=== PATIENT | female | born 1975 | race Caucasian/White ===

== ENCOUNTER 2024-11-08 10:34 | Outpatient (REF) | payer OTHER, SELFPAY ==
--- OUTSIDE RECORDS SUMMARY | 2024-11-08 12:45 | XMS_ITS ---
Author Name [facility] Organization Unknown Results Test Name/Text Value Interpretation Date Range Source ICD-10 CODES Normal 05/22/2024 [facility] AP GROSS DESCRIPTION Received in formalin. Dimensions 3 x 3 x 3 mm, and submitted in 1 cassette. Also received is a vial of tissue transport medium (Metricly) containing a biopsy specimen measuring 2 x 2 x 3 mm. Tissue was washed in phosphate buffered saline and then embedded in OCT for immunofluorescent studies. Tissue was frozen, cut at 5 microns, and stained with fluorescein-labeled antibody to human IgG, IgM, IgA, C3 and fibrinogen. Normal 05/22/2024 [facility] AP CLINICAL INFORMATION Erythematous edematous papules that remain in the same place for over 24 hours, with residual bruising/PIH; urticarial vasculitis vs urticaria vs hypersensitivity reaction vs autoimmune progesterone dermatitis Normal 05/22/2024 [facility]
[2024-11-08 17:33] LABS: MANUAL DIFF FLAG NO
[2024-11-08 17:41] LABS: Hematocrit 40.7 % (37.0-47.0); Hemoglobin 13.3 g/dl (12.0-16.0); Imm Gran Abs Auto 0.03 X10*3/uL (0.00-0.03); Imm Gran Pct Auto 0.3 % (0.0-0.4); Lymphocytes Absolute Auto 2.3 X10*3/uL (1.2-4.9); Mean Corpuscular HGB Conc 32.7 g/dl (31.0-35.0); Mean Corpuscular Hemoglobin 31.0 pg (27.0-33.0); Mean Corpuscular Volume 94.9 fL (80.0-98.0); NRBC Abs Auto 0.000 X10*3/uL (0.0-0.012); NRBC Pct Auto 0.0 /100WBC (0.0-0.2); Platelet Count 334 X10*3/uL (160-400); Red Blood Count 4.29 X10*6/uL (4.20-5.50); White Blood Count 9.1 X10*3/uL (4.8-10.8)
[2024-11-08 17:50] LABS: Alanine Aminotransferase 17 U/L (0-31); Aspartate Amino Transferase 19 U/L (5-31); Estimated Glomerular Filt Rate > 60
[2024-11-08 17:52] LABS: Appearance Urine Clear; Glucose Urine UA Negative (Negative); PH 6.5 (5.0-9.0); Specific Gravity - Urine <= 1.005 (1.005-1.025)
[2024-11-08 18:06] LABS: Total Protein Urine Random < 7 mg/dL (<12)
== END 2024-11-08 10:35 | disposition home or self-care (01) ==
LOC: HO.HKASLDS 10:34
PROVIDERS: PCP Nurse Practitioner Primary Care; Visit Provider Internal Medicine Rheumatology
DX: M18.0 Bilateral primary osteoarthritis of first carpometacarpal joints (principal); R76.0 Raised antibody titer; M65.4 Radial styloid tenosynovitis [de Quervain]; G56.03 Carpal tunnel syndrome, bilateral upper limbs; R76.8 Other specified abnormal immunological findings in serum; R29.898 Other symptoms and signs involving the musculoskeletal system; M79.641 Pain in right hand; M79.642 Pain in left hand; R21 Rash and other nonspecific skin eruption; R53.83 Other fatigue; R20.2 Paresthesia of skin; L65.9 Nonscarring hair loss, unspecified
CPT/HCPCS: 36415; 81001; 82565; 82570; 84156; 84450; 84460; 85025; 85652; 86140; 86160; 86225

== ENCOUNTER 2024-11-08 10:34 | Outpatient (AMB) | payer OTHER, SELFPAY ==
--- NOTE | 2024-11-08 10:48 | A.OFFVIS_ITS ---
Vital Signs 11/08/24 10:54 Height 5 ft 5 in Weight 181 lb BMI 30.1 BP 122/70 Blood Pressure Location Lt brachial Position Sitting Pulse 63 Pulse Source Pulse Oximeter Pulse Oximetry (%) 98 Oxygen Delivery Method Room Air Intake Visit Reasons: rash Intake Note: Patient presents for hives, and positive blood work. Allergies amoxicillin (From Augmentin) Allergy (Mild, Verified 11/08/24 10:57) Hives clavulanic acid (From Augmentin) Allergy (Mild, Verified 11/08/24 10:57) Hives HPI HPI rash: Details: New patient evaluation for positive MONICO. She has had high titre MONICO for the last 20 years. She saw rheumatology [facility] who did not diagnose with CTD. She was offered treatment with hydroxychloroquine but due to patient not having a rheumatological diagnosis she did not start hydroxychloroquine. She has had recurrent hives. She was put on Dupixent 4 months ago with 90% resolution. She bruises easily. R 2nd MCP pain 2 month ago with swelling. Using thumbs in repetitive motion like spray bottle and watering garden leads to reduced function the next day.. Rubbing 1st extensor tendons hurt with tingling when she rubs the area. Hands are numb at night. Stiffness in her hands is hours. Oral ulcers in the past. She is experiencing difficulty swallowing + hair loss Chronic dry eyes and dry mouth. She saw eye doctor a month ago who told her to take artificial tears. No miscarriages or DVT or PE. No complication with 1 childbirth. Headaches often No urianary symptoms Legs in weakness in legs and arms. 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 Fatigue for years. On thyroid replacement therapy. Hx hyperthyroidism s/p radioiodine therapy. TSH levels fluctuate and her thyroid medication has to be adjusted. 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 Dropping things. [facility] Medical History (Updated 11/08/24 @ 12:36 by Blayne Flores MD) Hallux valgus of right foot History of slipped capital femoral epiphysis Surgical History (Updated 12/30/23 @ 11:50 by ANGELO Kuhn) H/O tubal ligation History of cholecystectomy Physical Exam Vital Signs: Last Vital Signs Pulse 63 11/08/24 10:54 BP 122/70 11/08/24 10:54 Pulse Ox 98 11/08/24 10:54 Oxygen Delivery Method Room Air 11/08/24 10:54 BMI result Body Mass Index 30.1 Const Other: General: Comfortable CVS: RRR Respiratory: clear to auscultation bilaterally. Good respiratory effort Skin: No lesions seen MSK: She has tenderness to palpation right 2nd and 3rd MCP, right 2nd PIP, left 2nd MCP, 4th PIP, bilateral CMCs with slight squaring. She has ulnar deviation of right 2nd MCP. She does not have any synovitis. Tender to palpate bilateral 1st extensor compartment of wrists. Positive Vik left side. Positive Phalen's test bilateral. Negative Tinel's test. Good hand strength. Normal range of motion of upper extremities. Normal range of motion of lower extremities. She has valgus valgus deformity bilateral. No MTP tenderness Assessment & Plan Assessment & Plan (1) Positive MONICO (antinuclear antibody): Comment: High titer positive 1: 640 October 2023. She reports a high titer MONICO history for 20 years. She is experiencing fatigue, generalized weakness, hair loss, sicca symptoms, right 2 month history of right 2nd MCP pain, which I am working up for connective tissue disease such as Sjogren's syndrome, inflammatory arthritis and completing workup for SLE. Answered patient's questions to her satisfaction. Workup that patient has brought in with her from 11/22/2023 and 12/21/2022 has revealed no cytopenias, normal inflammatory markers, kidney function, liver function, negative Sm, HIGH HEEL BUILDER, centromere ab, scl-70, RF, CCP, anticardiolipin antibody, beta 2 glycoprotein antibody, double-stranded DNA and complements. Code(s): R76.8 - Other specified abnormal immunological findings in serum Category: Medical Plan: Labs ordered Bilateral hand x-rays ordered I have asked her to contact her protective officer for eye exam to evaluate for keratoconjunctivitis sicca associated with Sjogren syndrome and Francis's test. If testing is positive, then I will pursue minor salivary gland biopsy Return to clinic in 3 months (2) Bilateral hand pain: Comment: Localized pain to right 2nd MCP 2 month history. She has a few joints that are tender on exam in her hands involving MCPs and PIPs. She has slight ulnar deviation of right hand. I will further workup for early inflammatory arthritis with x-rays and labs. She has negative anti CCP antibody, rheumatoid factor November 22 2023. Code(s): M79.641 - Pain in right hand; M79.642 - Pain in left hand Category: Medical Plan: Inflammatory markers ordered X-ray bilateral hands ordered Return to clinic in 3 months (3) Paresthesia of hand, bilateral: Comment: I am concerned for carpal tunnel syndrome and ulnar neuropathy contributing to nocturnal paraesthesia Code(s): R20.2 - Paresthesia of skin Category: Medical Plan: EMG upper extremities ordered Return to clinic in 3 months (4) De Quervain's tenosynovitis, bilateral: Comment: She is symptomatic bilaterally with clinical diagnosis on left side. Code(s): M65.4 - Radial styloid tenosynovitis [de Quervain] Category: Medical Plan: Wrist braces prescribed OT prescribed Return to clinic in 3 months (5) Osteoarthritis of carpometacarpal (CMC) joint of both thumbs: Comment: Clinical Diagnosis. Repetitive motions are exacerbating thumb pain. Code(s): M18.0 - Bilateral primary osteoarthritis of first carpometacarpal joints Category: Medical Plan: OT prescribed with custom CMC splints X-ray bilateral hands ordered Return to clinic in 3 months Orders: Orders Alanine Aminotransferase Today R76.0 - Raised antibody titer, R76.8 - Other specified abnormal immunological findings in serum C Reactive Protein Today R76.0 - Raised antibody titer, R76.8 - Other specified abnormal immunological findings in serum Complement C4 Today R76.0 - Raised antibody titer, R76.8 - Other specified abnormal immunological findings in serum UA w Microscopic Today R76.0 - Raised antibody titer, R76.8 - Other specified abnormal immunological findings in serum Protein Creatinine Ratio, Ur Today R76.0 - Raised antibody titer, R76.8 - Other specified abnormal immunological findings in serum Anti DNA DS Antibody Today R76.0 - Raised antibody titer, R76.8 - Other specified abnormal immunological findings in serum Complete Blood Count Auto Diff Today R76.8 - Other specified abnormal immunological findings in serum XR Hand Bilat min 3v Today M79.641 - Pain in right hand, M79.642 - Pain in left hand NE electromyogram (EMG) Today R20.2 - Paresthesia of skin NE nerve conduction velocity Today R20.2 - Paresthesia of skin Aspartate Amino Transferase Today R76.0 - Raised antibody titer, R76.8 - Other specified abnormal immunological findings in serum Creatinine Today R76.0 - Raised antibody titer, R76.8 - Other specified abnormal immunological findings in serum Erythrocyte Sedimentation Rate Today R76.0 - Raised antibody titer, R76.8 - Other specified abnormal immunological findings in serum Complement C3 Today R76.0 - Raised antibody titer, R76.8 - Other specified abnormal immunological findings in serum OT Evaluation and Treatment Today G56.03 - Carpal tunnel syndrome, bilateral upper limbs, M18.0 - Bilateral primary osteoarthritis of first carpometacarpal joints, M65.4 - Radial styloid tenosynovitis [de Quervain], M79.641 - Pain in right hand, M79.642 - Pain in left hand Medications: New arm brace (Wrist Brace) Wear during the day with repetitive activity Diagnosis: Bilateral de Quervain tenosynovitis Bilateral thumb spica splint short 2 ea 0RF Coding Level of Care Code Est Pt Level 5 (36496) Diagnoses Positive MONICO (antinuclear antibody) R76.8 Bilateral hand pain M79.641; M79.642 Paresthesia of hand, bilateral R20.2 De Quervain's tenosynovitis, bilateral M65.4 Osteoarthritis of carpometacarpal (CMC) joint of both thumbs M18.0 Time Spent (min) 60
[2024-11-08 10:54] VITALS: BP 122/70; PULSE 63; O2SAT 98; BMI 30.1
--- OUTSIDE RECORDS SUMMARY | 2024-11-08 11:07 | XMS_ITS | Encounter Summary ---
Author Organization [facility] Address [address] [place] [address] Care Team Providers Care Medical Delivery Driver Name Role Phone Nicole Castrejon Primary Care Provider [phone] Encounter Details Date Type Department Care Team (Late st Contact Info) Description 10/12/2024 Telephone [facility] [address] [place] [address] Gas Desulfurizer: Georgina Dixon MD [address] [place] [address] Social History Tobacco Use Types Packs/Day Years Used Date Smoking Tobacco: Never Passive Smoke Exposure: Never Smokeless Tobacco: Never Alcohol Use Standard Drinks/Week Comments Yes 0 (1 standard drink = 0.6 oz pur e alcohol) rare Comments Unknown Sex and Gender Information Value Date Recorded Sex Assigned at Female 01/04/2023 1:56 PM EDT Legal Sex Female 4:43 PM EDT Gender Identity Female 01/04/2023 1:56 PM EDT Sexual Orientation Straight 01/04/2023 1: 56 PM EDT documented as of this encounter Miscellaneous Notes * Telephone Encounter - Poppy Kennedy - 10/12/2024 10:59 AM EDT Who is calling: Maame Candelaria Call back Number: [phone] -Medication Questions/Refills: Pt states pharmacy needs clarification on Fexofenadine, most likely because it is a high dose (may take up to 4 as needed) pt has been out of the medication Preferred Pharmacy: [facility] [place] [facility] documented in this encounter Plan of Treatment Not on file documented as of this encounter Visit Diagnoses Not on filedocumented in this encounter Care Teams Medical Delivery Driver Relationship Specialty Start Date End Date Nicole Castrejon [address] [place] [address] PCP - General 01/03/23 documented as of this encounter
--- OUTSIDE RECORDS SUMMARY | 2024-11-08 11:07 | XMS_ITS | Patient Health Record ---
Author Organization [facility] Address [address] [address] Care Team Providers Care Putty Worker Name Role Phone Kasia Castellon Unavailable [phone] Reason For Referral No Information Plan Of Treatment No Information Insurance Providers Payer Name Payer Address Payer Phone Subscriber Number Group Number Insured Name Patient Relationship to Insured Coverage Start Date Coverage End Date [employer] [address] [place], [place] [id number] CARLITOS OSULLIVAN Self - patient is the insured
== END 2024-11-08 12:01 | disposition home or self-care (01) ==
LOC: HO.RHES 10:34
PROVIDERS: PCP Nurse Practitioner Primary Care; Visit Provider Internal Medicine Rheumatology
DX: R76.8 Other specified abnormal immunological findings in serum (principal); M79.641 Pain in right hand; M79.642 Pain in left hand; R20.2 Paresthesia of skin; M65.4 Radial styloid tenosynovitis [de Quervain]; M18.0 Bilateral primary osteoarthritis of first carpometacarpal joints
CPT/HCPCS: 99205

== ENCOUNTER 2024-11-14 12:38 | Outpatient (REF) | payer OTHER, SELFPAY ==
--- NOTE | ~2024-11-14 | XR_ITS ---
Exam: X-ray, .XR HAND 3 VIEWS BILATERAL TECHNIQUE: Three views upper extremity, bilateral hands INDICATION: M79.641 - Pain in right hand COMPARISON: None available. FINDINGS: RIGHT HAND: Joint spaces are preserved. There are no osteophytes. There are no erosions. There are no soft tissue calcifications. LEFT HAND: Joint spaces are preserved. There are no osteophytes. There are no erosions. There are no soft tissue calcifications. XR/XR Hand Bilat min 3v IMPRESSION: Right hand: Unremarkable right hand Left hand: Unremarkable left hand Electronically signed by: Cristian Goldsmith MD 11/14/2024 01:16 PM EDT
--- OUTSIDE RECORDS SUMMARY | 2024-11-14 13:04 | XMS_ITS | Encounter Summary ---
Author Organization [facility] Address [address] [place] [address] Care Team Providers Care President/Gm Production & Live Experiences Name Role Phone Nicole Castrejon Primary Care Provider Encounter Details Date Type Department Care Team (Late st Contact Info) Description 10/12/2024 Telephone [facility] [address] [place] [address] Finish Production Manager: Georgina Dixon MD [address] [place] [address] Social History Tobacco Use Types Packs/Day Years [...] is calling: Maame Candelaria Call back Number: [phone] -Medication Questions/Refills: Pt states pharmacy needs clarification on Fexofenadine, most likely because it is a high dose (may take up to 4 as needed) pt has been out of the medication Preferred Pharmacy: [facility] in [place] [facility] documented in this encounter Plan of Treatment Not on file documented as of this encounter Visit Diagnoses Not on filedocumented in this encounter Care Teams President/Gm Production & Live Experiences Relationship Specialty Start Date End Date Nicole Castrejon [address] [place] [address] PCP - General 01/03/23 documented as of this encounter
--- OUTSIDE RECORDS SUMMARY | 2024-11-14 13:05 | XMS_ITS | Patient Health Record ---
Author Organization [facility] Address [address] [address] Care Team Providers Care Pipe Racker Name Role Phone Kasia Castellon Unavailable [phone] Reason For Referral No Information Plan Of Treatment No Information Insurance Providers Payer Name Payer Address Payer Phone Subscriber Number Group Number Insured Name Patient Relationship to Insured Coverage Start Date Coverage End Date C[employer] [address] [place], [place] [id number] CARLITOS OSULLIVAN Self - patient is the insured
== END 2024-11-14 12:39 | disposition home or self-care (01) ==
LOC: HO.XRAY 12:38
PROVIDERS: PCP Internal Medicine; Visit Provider Internal Medicine Rheumatology
DX: M79.641 Pain in right hand (principal); M79.642 Pain in left hand
CPT/HCPCS: 73130

== ENCOUNTER → 2024-11-14 12:43 | Outpatient (BNV) | payer OTHER, SELFPAY | PROVIDERS: PCP Internal Medicine; Visit Provider Radiology Diagnostic Radiology | DX: M79.641 Pain in right hand (principal) | CPT/HCPCS: 73130 ==

== ENCOUNTER 2025-01-17 12:38 | Outpatient (REF) | payer OTHER, SELFPAY ==
--- NOTE | 2025-01-17 12:43 | EMG_ITS ---
Chief complaint: Right worse than left hand numbness/tingling, particularly for the 5th digits. Chronic neck pain. Reason for referral: Evaluate for Carpal Tunnel Syndrome or ulnar neuropathy Referred by: Dr. Flores Procedure done: Upper extremity NCS/EMG Precautions and/or limitations: None The limb temperature was monitored continuously and remained between 32-36 degrees C during the performance of the NCS. Nerve Conduction Studies Anti Sensory Summary Table ?Stim Site NR Onset (ms) Norm Onset (ms) Peak (ms) Norm Peak (ms) O-P Amp (?V) Norm O-P Amp Site1 Site2 Delta-0 (ms) Dist (cm) Zan (m/s) Norm Zan (m/s) Left Median Anti Sensory (2nd Digit) Wrist ? 2.7 3.4 <3.6 22.9 >10 Wrist 2nd Digit 2.7 14.0 52 Right Median Anti Sensory (2nd Digit) Wrist ? 2.7 3.9 <3.6 25.9 >10 Wrist 2nd Digit 2.7 14.0 52 Right Radial Anti Sensory (Thumb) Forearm ? 1.7 2.2 <3.1 38.1 Forearm Thumb 1.7 0.0 Left Ulnar Anti Sensory (5th Digit) Wrist ? 2.3 3.2 <3.7 46.4 >15.0 Wrist 5th Digit 2.3 14.0 61 Right Ulnar Anti Sensory (5th Digit) Wrist ? 2.4 3.1 <3.7 44.0 >15.0 Wrist 5th Digit 2.4 14.0 58 Motor Summary Table ?Stim Site NR Onset (ms) Norm Onset (ms) O-P Amp (mV) Norm O-P Amp iAmp (mV) Amp (1st) (%) Site1 Site2 Delta-0 (ms) Dist (cm) Zan (m/s) Norm Zan (m/s) Left Median Motor (Abd Poll Brev) Wrist ? 3.8 <3.9 8.7 >4.5 10.9 100.0 Elbow Wrist 3.6 18.5 51 >45 Elbow ? 7.4 7.5 9.7 86.2 Right Median Motor (Abd Poll Brev) Wrist ? 4.2 <3.9 12.3 >4.5 14.5 100.0 Elbow Wrist 3.2 18.5 58 >45 Elbow ? 7.4 12.5 14.6 101.6 Left Ulnar Motor (Abd Dig Minimi) Wrist ? 2.7 <3.0 9.0 >5 10.4 100.0 B Elbow Wrist 2.8 17.0 61 >45 B Elbow ? 5.5 9.0 10.4 100.0 A Elbow B Elbow 1.4 10.0 71 >45 A Elbow ? 6.9 9.0 10.3 100.0 Right Ulnar Motor (Abd Dig Minimi) Wrist ? 2.7 <3.0 9.3 >5 11.3 100.0 B Elbow Wrist 3.3 18.0 55 >45 B Elbow ? 6.0 8.9 10.7 95.7 A Elbow B Elbow 1.4 10.0 71 >45 A Elbow ? 7.4 7.8 9.3 83.9 Comparison Summary Table ?Stim Site NR Peak (ms) Norm Peak (ms) P-T Amp (?V) Site1 Site2 Delta-P (ms) Norm Delta (ms) Left Median/Radial Dig I Comparison (Digit 1 - 10cm) Median ? 3.0 <2.9 101.2 Median Radial 0.7 Radial ? 2.3 <2.8 40.3 EMG ?Side Muscle Nerve Root Ins Act Fibs Psw Amp Dur Poly Recrt Int Pat Comment Right 1stDorInt Ulnar C8-T1 Nml Nml Nml Nml Nml 0 Nml Complete Right FlexCarRad Median C6-7 Nml Nml Nml Nml Nml 0 Nml Complete Right Biceps Musculocut C5-6 Nml Nml Nml Nml Nml 0 Nml Complete Right Triceps Radial C6-7-8 Nml Nml Nml Nml Nml 0 Nml Complete Right Deltoid Axillary C5-6 Nml Nml Nml Nml Nml 0 Nml Complete Left 1stDorInt Ulnar C8-T1 Nml Nml Nml Nml Nml 0 Nml Complete Left FlexCarRad Median C6-7 Nml Nml Nml Nml Nml 0 Nml Complete Left Biceps Musculocut C5-6 Nml Nml Nml Nml Nml 0 Nml Complete Left Triceps Radial C6-7-8 Nml Nml Nml Nml Nml 0 Nml Complete Left Deltoid Axillary C5-6 Nml Nml Nml Nml Nml 0 Nml Complete FINDINGS: Right median motor nerve showed prolonged distal latency, normal amplitude and normal conduction velocity. Right median sensory nerve showed prolonged peak latency. Increased interlatency difference between left median and radial sensory nerves. All other nerves tested were within normal. Concentric needle EMG was performed in selected muscles of the bilateral upper extremities. Study did not reveal signs of electric abnormalities as shown in the table above. IMPRESSION: 1. This is an abnormal study. 2. There is electrodiagnostic evidence for right moderate-severe and left mild median neuropathy at the wrist, consistent with carpal tunnel syndrome. 3. There is no electrodiagnostic evidence for ulnar neuropathy, brachial plexopathy, or cervical radiculopathy. Thank you for your kind referral. Eugenie Brown MD, JAROCHO Board Certified, [place] [employer] and [employer] (ABPMR) Board Certified, [place] Board [employer] Electrodiagnostic [employer] (ABEM) CODIN [phone] x 2 MTDD
--- OUTSIDE RECORDS SUMMARY | 2025-01-17 17:26 | XMS_ITS | Clinical Summary ---
Author Organization [facility] Address [address] [place] [address] Care Team Providers Care Director Of Flight Operations Name Role Phone Nicole Castrejon Primary Care Provider [phone] Allergies Active Allergy Reactions Criticality Noted Date Comments Amoxicillin-Pot Clavulanate Hives,Itching 01/10/2023 Augmentin Dmdm Hydantoin Contact Dermatitis,Edema,Hi ves,Itching,Rash 01/10/2023 Isothiazolinones Edema,Hives,Itching ,Rash 01/10/2023 Latex Contact Dermatitis,Hives,It jesenia 01/10/2023 Other Itching,Dermatitis, Rash,Contact Dermatitis,Edema 07/24/2022 Chloroprene gloves Medications albuterol (PROAIR HFA,VENTOLIN HFA) 90 mcg inhaler Inhale 2 puffs by mouth as needed for wheezing or shortness of breath. Active cetirizine-pseu doephedrine (ZyrTEC-D) 5-120 mg per 12 hr tablet Take 1 tablet by mouth every night. Active levothyroxine (SYNTHROID, LEVOTHROID) 175 mcg tablet Take 175 mcg by mouth daily. Active LORazepam (ATIVAN) 0.5 mg tablet Take 1-2 tablets by mouth daily as needed for anxiety. 3 Active Singulair 10 mg tablet Take 10 mg by mouth nightly. 2 Active phenytoin extended (DILANTIN) 300 mg ER capsule Take 300 mg by mouth 2 (two) times a day. Active fexofenadine (BONNY) 180 mg tablet Take 1 tablet (180 mg total) by mouth once a day. 60 tablet 3 5 Active Active Problems Problem Noted Date Diagnosed Date Polyarthralgia 01/17/2024 Chronic right shoulder pain 01/17/2024 Assessment & Plan (01/17/2024 5:08 PM EDT): -Likely due to rotator cuff pathology. -Xrays today -Referred to PT. Eosinophilic esophagitis 01/10/2023 Positive MONICO (antinuclear antibody) 01/10/2023 Assessment & Plan (01/17/2024 5:09 PM EDT): -High titer MONICO but with negative additional serologies for SLE. Most recently had repeat testing of her serologies through PCP and now Scl 70 is negative but anti-chromatin Ab is positive. Normal complement and inflammatory markers. -Reports recurring hives, arthralgias without arthritis, and fatigue. -Serologies are not convincing for systemic lupus. Patient is frustrated with lack of diagnosis. -Areas of joint pain would be more suggestive of mechanical/degenerative causes of pain (such as neck pain, lower back pain) and there is no synovitis on exam or relevant persistent rashes. -For history of hives, I suggested a second opinion by Dermatology at our lupus clinic/Dr. Alves -We discussed trying hydroxychloroquine to see if her arthralgias improve. Would use for 3-6 months as a trial. Patient is aware it would not help her neck or lower back pain. Risks of GI upset and retinal toxicity/need for regular Ophtho screenings were discussed. Reading material provided. Patient will consider, not ready to commit yet. Encounters Date Type Department Care Team Description 10/23/2024 Telephone [facility] [address] [place] [address] Kiln Furniture Saw Tender: Georgina Dixon MD Non-Covered/Excluded - PAC Retail Pharm Denial from Last 3 Months Social History Tobacco Use Types Packs/Day Years Used Date Smoking Tobacco: Never Passive Smoke Exposure: Never Smokeless Tobacco: Never Tobacco Cessation:Counseling Given: Not Answered Alcohol Use Standard Drinks/Week Comments Yes 0 (1 standard drink = 0.6 oz pur e alcohol) rare Comments Unknown Sex and Gender Information Value Date Recorded Sex Assigned at Female 01/04/2023 1:56 PM EDT Legal Sex Female 4:43 PM EDT Gender Identity Female 01/04/2023 1:56 PM EDT Sexual Orientation Straight 01/04/2023 1: 56 PM EDT Last Filed Vital Signs Vital Sign Reading Time Taken Comments Blood Pressure 105/67 01/24/2024 3:38 PM EDT Pulse 70 01/24/2024 3:38 PM EDT Temperature 37.2 C (99 F) 01/24/2024 3:38 PM EDT Respiratory Rate - - Oxygen Saturation - - Inhaled Oxygen Concentration - - Weight 85.7 kg (189 lb) 01/24/2024 3:38 PM EDT Height 165.1 cm (5' 5 ) 01/24/2024 3:38 PM EDT Body Mass Index 31.45 01/24/2024 3:38 PM EDT Plan of Treatment Health Maintenance Due Date Last Done Comments Cervical Cancer Screening 1977 Cologuard 1977 Colon Cancer Screening 1977 Colonoscopy 1977 FOBT / Fit Test 1977 HIV Screening 1977 HPV and Pap Smear 1977 Hepatitis C Screening 1977 Pap Smear 1977 Sigmoidoscopy 1977 Hepatitis B Vaccines (1 of 3 - 19+ 3-dose series) 1996 Pneumococcal Vaccine: Pediat lele (0-5 Years) and At-Risk Patients (6-50 Years) (1 of 2 - PCV) 1996 Mammogram 2017 Alcohol/Substance Use Screening 04/25/2024 Depression Screening and Follow-Up 04/25/2024 Social Drivers of Health Jing ual Screening 04/25/2024 COVID-19 Vaccine ( - 2024- season) 2024 05/13/2021, 06/07/2020, 05/17/2020 Influenza Vaccine (#1) 2024 Diabetes Screening 01/16/2027 01/17/2024 DTaP,Tdap,and Td Vaccines (2 - Td or Tdap) 10/09/2030 10/09/2020 RSV Vaccine (60+ years old a nd patients) (1 - 1-dose 75+ series) 2052 Procedures * Due to [place] [employer] law, this organization might not be sharing negative HIV tests. Procedure Name Priority Date/Time Associated Diagnosis Comments COMPREHENSIVE METABOLIC PANEL Routine 01/17/2024 3:16 PM EDT Polyarthralgia Positive MONICO (antinuclear antibody) from Last 3 Months or Most Recently Relevant to Health Maintenance Results * Due to [facility] law, this organization might not be sharing negative HIV tests. * (ABNORMAL) Comprehensive Metabolic Panel (01/17/2024 3:16 PM EDT) NA 141 135 - 145 mmol/L 01/17/2024 4:28 PM EDT [facility] K 3.7 3.5 - 5.3 mmol/L 01/17/2024 4:28 PM EDT [facility] Cl 105 98 - 107 mmol/L 01/17/2024 4:28 PM EDT [facility] CO2 28 22 - 32 mmol/L 01/17/2024 4:28 PM EDT [facility] Anion Gap 8 5 - 15 01/17/2024 4:28 PM EDT [facility] Glucose 100(H) 65 - 99 mg/dL 01/17/2024 4:28 PM EDT [facility] Creatinine 0.78 0.50 - 1.20 mg/dL 01/17/2024 4:28 PM EDT [facility] Calcium 8.9 8.6 - 10.5 mg/dL 01/17/2024 4:28 PM EDT [facility] Total Protein 7.2 6.0 - 8.0 g/dL 01/17/2024 4:28 PM EDT [facility] Albumin 4.2 3.5 - 5.2 g/dL 01/17/2024 4:28 PM EDT [facility] Bilirubin, Total <0.2(L) 0.2 - 1.2 mg/dL 01/17/2024 4:28 PM EDT [facility] Alkaline Phosphatase 80 35 - 129 U/L 01/17/2024 4:28 PM EDT [facility] AST 16 10 - 40 U/L 01/17/2024 4:28 PM EDT [facility] ALT 13 10 - 40 U/L 01/17/2024 4:28 PM EDT [facility] BUN 14 7 - 23 mg/dL 01/17/2024 4:28 PM EDT [facility] eGFR >90 >=60 mL/min/1 .73m2 01/17/2024 4:28 PM EDT [facility] Comment:The estimated glomer ular filtration rate (eGFR) is calculated using a new formula developed by the NKF-ASN task force to eliminate race-based correction factors. The new formula uses serum/plasma creatinine, age, and gender to determine eGFR. A value below 60mls/min might indicate kidney disease and will be flagged. For additional information, see Burk et al, Am J Kidney Dis. 2021;79(2):268- 288, A Unifying Approach for GFR estimation: Recommendations of the NKF-ASN Task Force on Reassessing the Inclusion of Race in Diagnosing Kidney Disease . Globulin, Total 3.0 2.1 - 4.2 g/dL 01/17/2024 4:28 PM EDT [facility] A/G Ratio 1.4(L) 1.5 - 3.0 01/17/2024 4:28 PM EDT [facility] Blood Structure of peripheral vein / Unknown Venipuncture / Unknown 01/17/2024 3:16 PM EDT 01/17/2024 3:40 PM EDT us Georgina Lincoln MD LAB BLOOD ORDERABLES Final Re sult [facility] [address] [place] [address], from Last 3 Months or Most Recently Relevant to Health Maintenance Insurance [facility] Care Teams Director Of Flight Operations Relationship Specialty Start Date End Date Nicole Castrejon [address] [place] [phone] PCP - General 01/03/23
--- OUTSIDE RECORDS SUMMARY | 2025-01-17 17:26 | XMS_ITS | Patient Health Record ---
Author Organization [facility] Address [address] [address] Care Team Providers Care Art Editor Name Role Phone Kasia Castellon Unavailable [phone] Reason For Referral No Information Plan Of Treatment No Information Insurance Providers Payer Name Payer Address Payer Phone Subscriber Number Group Number Insured Name Patient Relationship to Insured Coverage Start Date Coverage End Date CIGNA [address] [place], [place] [id number] [phone] CARLITOS OSULLIVAN Self - patient is the insured
== END 2025-01-17 12:39 | disposition home or self-care (01) ==
LOC: HO.NEURO 12:38
PROVIDERS: PCP Internal Medicine; Visit Provider Internal Medicine Rheumatology
DX: R20.2 Paresthesia of skin (principal); R94.131 Abnormal electromyogram [EMG]
CPT/HCPCS: 95886; 95911

== ENCOUNTER → 2025-01-17 12:43 | Outpatient (BNV) | payer OTHER, SELFPAY | PROVIDERS: PCP Internal Medicine; Visit Provider Physical Medicine & Rehabilitation | DX: G56.03 Carpal tunnel syndrome, bilateral upper limbs (principal) | CPT/HCPCS: 95886; 95911 ==

== ENCOUNTER 2025-02-21 08:10 | Outpatient (AMB) | payer OTHER, SELFPAY ==
--- OUTSIDE RECORDS SUMMARY | 2025-02-16 23:59 | XMS_ITS | Continuity of Care Document ---
Author Organization [facility] Address [address] [facility], [address] d Floor, [address] [place] [id number]- Care Team Providers Care Drop Hammer Setter Up Name Role Phone Cash Nicole Gramajo Primary Care Physician [place] [facility] [place]): [place]/16/25 [facility] [address] [facility] 3rd Floor, [address] [place] [id number]- Attending Physician: Daniel Tai Admitting Physician: Daniel Tai Referring Physician: Admtr ArNoy Encounter Type: Triage Allergies, Adverse Reactions, Alerts Substance Criticality Severity Reaction Reaction Severity Status codeine Unable to assess criticality Persistent Moderate upset stomach and pain Active Augmentin Unable to assess criticality Persistent Severe hives Active Latex Unable to assess criticality Persistent Moderate contact dermatitis Active Other Food Allergy 1 Unable to assess criticality Persistent Severe esophagitis from many foods Active Other Environmental Allergy Unable to assess criticality Persistent Moderate preservatives - contact dermatitis Active 1beef, pork, shrimp, crab, bananas, carrots, celery, strawberries, apples, cantaloupe Medications Albuterol (Eqv-ProAir HFA) 90 mcg/inh inhalation aerosol 0 Refills, Maintenance, 08/03/24 8:51:00 AM EDT, Partial fill upon patient request if the prescription is for a schedule II opioid drug. Start Date: 08/03/24 Status: Ordered Medication Dispense Status: Completed Total Allowed Fills: 1 Fills Dispensed: 0 Allergy Relief (Fexofenadine HCl) 180 mg oral tablet 0 Refills, Maintenance, 08/03/24 8:50:00 AM EDT, Partial fill upon patient request if the prescription is for a schedule II opioid drug. Start Date: 08/03/24 Status: Ordered Medication Dispense Status: Completed Total Allowed Fills: 1 Fills Dispensed: 0 Dilantin 100 mg oral capsule, extended release 4 capsule = 400 mg, By Mouth, Daily at bedtime, # 90 capsule, 0 Refills, Maintenance, 11/30/18 8:36:07 AM EDT, CR Capsule Start Date: 11/30/18 Status: Ordered Medication Dispense Status: Completed Quantity: 90.0 Unit: capsule Total Allowed Fills: 1 Fills Dispensed: 0 Dupixent Pre-filled Pen 300 mg/2 mL subcutaneous solution 0 Refills, Maintenance, 08/03/24 8:51:00 AM EDT, Partial fill upon patient request if the prescription is for a schedule II opioid drug. Start Date: 08/03/24 Status: Ordered Medication Dispense Status: Completed Total Allowed Fills: 1 Fills Dispensed: 0 escitalopram 5 mg oral tablet 0 Refills, Maintenance, 08/03/24 8:51:00 AM EDT, Partial fill upon patient request if the prescription is for a schedule II opioid drug. Start Date: 08/03/24 Status: Ordered Medication Dispense Status: Completed Total Allowed Fills: 1 Fills Dispensed: 0 levothyroxine 175 mcg (0.175 mg) oral tablet 1 tablet = 175 mcg, By Mouth, Daily, # 30 tablet, 0 Refills, Maintenance, 11/30/18 8:36:51 AM EDT, Tablet Start Date: 11/30/18 Status: Ordered Medication Dispense Status: Completed Quantity: 30.0 Unit: tablet Total Allowed Fills: 1 Fills Dispensed: 0 Problem List Condition Confirmation Course Effective Dates Status Health St atus Informant Obese class I Confirmed Active Social History Social History Type Response Smoking Status Former smoker, quit more than 30 days ago entered on: 08/03/24 Sex Sex Representation Female (finding) Patient Care team information Care Team Personnel Name: Nicole Castrejon DO Position: [facility] Physician (General Medicine) Member Role: PCP Address: [address] [place] [address] Telecom: Care Team Related Persons Name: LUMA OSULLIVAN Insurance Providers Guarantor name: CARLITOS OSULLIVAN [facility] Plan Information #: 1 Payer: [employer] Payer Identifier: NA Member Number: [id number] Group Number: [id number] Subscriber Identifier: [id number] Relationship to Subscriber: self Coverage Type: Managed Care (Private) Coverage Verification Date: NA Telecom: NA Address: NA
[2025-02-21 08:19] VITALS: BP 110/70; PULSE 65; O2SAT 97; BMI 32.6
--- NOTE | 2025-02-21 08:19 | MHC.OFFVIS ---
Vital Signs 02/21/25 08:19 Height 5 ft 5 in Weight 195 lb 15.855 oz BMI 32.6 BP 110/70 Blood Pressure Location Rt brachial Position Sitting Pulse 65 Pulse Source Pulse Oximeter Pulse Oximetry (%) 97 Oxygen Delivery Method Room Air Intake Visit Reasons: 3 Months Intake Note: Patient presents today for bilateral hand pain. Accompanied by: Self / Same As Patient Allergies amoxicillin (From Augmentin) Allergy (Mild, Verified 02/21/25 08:20) Hives clavulanic acid (From Augmentin) Allergy (Mild, Verified 02/21/25 08:20) Hives HPI HPI 3 Months: Details: She is experiencing more joint pain than stiffness. She is not paying attention to the stiffness because it is not as predominant as joint pain, particularly in her hands. She is having most pain in her wrists, IP joints and MCPs. She has difficulty holding objects. 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 Whole hands are numb. She did not obtain wrist braces to wear at night. [facility] Medical History Hallux valgus of right foot History of slipped capital femoral epiphysis Surgical History H/O tubal ligation History of cholecystectomy Physical Exam Vital Signs: Last Vital Signs Pulse 65 02/21/25 08:19 BP 110/70 02/21/25 08:19 Pulse Ox 97 02/21/25 08:19 Oxygen Delivery Method Room Air 02/21/25 08:19 BMI result Body Mass Index 32.6 Const Other: General: Comfortable CVS: RRR Respiratory: clear to auscultation bilaterally. Good respiratory effort Skin: No lesions seen MSK: She has tenderness to palpation right 1st, 4th and 5th MCP, right 2nd PIP, left 1st, 5th MCP, multiple PIP, bilateral CMCs with slight squaring, right shoulder. She has ulnar deviation of right 2nd MCP. She does not have any synovitis. Tender to palpate bilateral 1st extensor compartment of wrists. Positive Vik bilaterally. Normal range of motion of upper extremities. Normal range of motion of lower extremities. She has valgus valgus deformity bilateral. No MTP tenderness Assessment & Plan Assessment & Plan (1) Positive MONICO (antinuclear antibody): Comment: High titer positive 1: 640 October 2023. She reports a high titer MONICO history for 20 years. She is experiencing fatigue, generalized weakness, hair loss, sicca symptoms, chronic pain of bilateral MCPs and PIPs. She has slight ulnar deviation of right hand. I am concerned for inflammatory arthritis contributing to her hand symptoms. She is also being worked up for Sjogren syndrome. SLE workup was unremarkable. She has negative anti CCP antibody and rheumatoid factor. Mild elevation in CRP with normal ESR. 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 Code(s): R76.8 - Other specified abnormal immunological findings in serum Category: Medical Plan: MRI bilateral hands with and without contrast for further evaluation of inflammatory arthritis as it will manager change with the addition of DMARD therapy I have asked her to contact her assembly and packing supervisor for eye exam to evaluate for keratoconjunctivitis sicca associated with Sjogren syndrome and Francis's test. If testing is positive, then I will pursue minor salivary gland biopsy Hepatitis-B and C panel ordered I am rechecking inflammatory markers Return to clinic in 3-4 months (2) De Quervain's tenosynovitis, bilateral: Comment: She is symptomatic bilaterally with clinical diagnosis on left side. Code(s): M65.4 - Radial styloid tenosynovitis [de Quervain] Category: Medical Plan: Patient received bilateral cortisone injections this visit OT prescribed Return to clinic in 3-4 months (3) Osteoarthritis of carpometacarpal (CMC) joint of both thumbs: Comment: Clinical Diagnosis. X-ray bilateral hands are normal. Repetitive motions are exacerbating thumb pain. Code(s): M18.0 - Bilateral primary osteoarthritis of first carpometacarpal joints Category: Medical Plan: OT prescribed with custom CMC splints Consider CMC cortisone injections next visit Return to clinic in 3-4 months (4) Bilateral carpal tunnel syndrome: Comment: Confirmed on EMG. Code(s): G56.03 - Carpal tunnel syndrome, bilateral upper limbs Category: Medical Plan: Prescription for bilateral cock-up wrist braces prescribed for patient to wear at night Return to clinic in 3-4 months Orders: Orders MR hand LT wo/w con Today M79.641 - Pain in right hand, M79.642 - Pain in left hand, R76.8 - Other specified abnormal immunological findings in serum C Reactive Protein Today M79.641 - Pain in right hand, M79.642 - Pain in left hand MR hand RT wo/w con Today M79.641 - Pain in right hand, M79.642 - Pain in left hand, R76.8 - Other specified abnormal immunological findings in serum Hepatitis B,C Profile Today M79.641 - Pain in right hand, M79.642 - Pain in left hand Erythrocyte Sedimentation Rate Today M79.641 - Pain in right hand, M79.642 - Pain in left hand Medications: Refilled arm brace (Wrist Brace) Wear at night Bilateral cock-up wrist braces. Diagnosis: Carpal tunnel syndrome 2 ea 0RF Coding Level of Care Code Est Pt Level 4 (35471) Complex EM visit Add On G2211 Diagnoses Positive MONICO (antinuclear antibody) R76.8 De Quervain's tenosynovitis, bilateral M65.4 Osteoarthritis of carpometacarpal (CMC) joint of both thumbs M18.0 Bilateral carpal tunnel syndrome G56.03 Time Spent (min) 25
--- OUTSIDE RECORDS SUMMARY | 2025-02-21 08:36 | XMS_ITS | Clinical Summary ---
Author Organization [facility] Address [address] [place] [address] Care Team Providers Care Battery Charger Name Role Phone Nicole Castrejon Primary Care Provider [phone] Allergies Active Allergy Reactions Criticality Noted Date [...] mouth once a day. 60 tablet 3 Active Active Problems Problem Noted Date Diagnosed [...] will consider, not ready to commit yet. Social History Tobacco Use Types Packs/Day Years [...] Health Jing ual Screening 04/25/2024 COVID-19 Vaccine (4 - 2024-2 6 season) 2024 05/13/2021, 06/07/2020, 05/17/2020 Influenza Vaccine (#1) 2024 DTaP,Tdap,and Td Vaccines (2 - Td or Tdap) 10/09/2030 10/09/2020 RSV Vaccine (60+ years old a nd patients) (1 - 1-dose 75+ series) 2052 Diabetes Screening Discontinued 01/17/2024 Procedures * Due to [place] state law, this organization might not be sharing negative HIV tests. Procedure Name Priority Date/Time Associated Diagnosis Comments COMPREHENSIVE METABOLIC PANEL Routine 01/17/2024 3:16 PM EDT Polyarthralgia Positive MONICO (antinuclear antibody) from Last 3 Months or Most Recently Relevant to Health Maintenance Results * Due to [place] state law, this organization might not be sharing negative HIV tests. * (ABNORMAL) Comprehensive Metabolic Panel (01/17/2024 3:16 PM EDT) NA 141 135 - 145 mmol/L 01/17/2024 4:28 PM EDT [facility] K 3.7 3.5 - 5.3 mmol/L 01/17/2024 4:28 PM EDT [facility] Cl 105 98 - 107 mmol/L 01/17/2024 4:28 PM EDT [facility] CO2 28 22 - 32 mmol/L 01/17/2024 4:28 PM EDT [facility] Anion Gap 8 5 - 15 01/17/2024 4:28 PM EDT [facility] Glucose 100(H) 65 - 99 mg/dL 01/17/2024 4:28 PM EDT [facility] Creatinine 0.78 0.50 - 1.20 mg/dL 01/17/2024 4:28 PM EDT [facility] Calcium 8.9 8.6 - 10.5 mg/dL 01/17/2024 4:28 PM EDT [facility] Total Protein 7.2 6.0 - 8.0 g/dL 01/17/2024 4:28 PM EDT [facility] Albumin 4.2 3.5 - 5.2 g/dL 01/17/2024 4:28 PM EDT [facility] Bilirubin, Total <0.2(L) 0.2 - 1.2 mg/dL 01/17/2024 4:28 PM EDT [facility] Alkaline Phosphatase 80 35 - 129 U/L 01/17/2024 4:28 PM EDT [facility] AST 16 10 - 40 U/L 01/17/2024 4:28 PM EDT [facility] ALT 13 10 - 40 U/L 01/17/2024 4:28 PM EDT [facility] BUN 14 7 - 23 mg/dL 01/17/2024 4:28 PM EDT [facility] eGFR >90 >=60 mL/min/1 .73m2 01/17/2024 4:28 PM EDT [facility] Comment:The estimated glomer ular filtration rate (eGFR) is calculated using a new formula developed by the NKF-ASN task force to eliminate race-based correction factors. The new formula uses serum/plasma creatinine, age, and gender to determine eGFR. A value below 60mls/min might indicate kidney disease and will be flagged. For additional information, see Bhargavi et al, Am J Kidney Dis. 2021;79(2):268- 288, A Unifying Approach for GFR estimation: Recommendations of the NKF-ASN Task Force on Reassessing the Inclusion of Race in Diagnosing Kidney Disease . Globulin, Total 3.0 2.1 - 4.2 g/dL 01/17/2024 4:28 PM EDT [facility] A/G Ratio 1.4(L) 1.5 - 3.0 01/17/2024 4:28 PM EDT [facility] Blood Structure of peripheral vein / Unknown Venipuncture / Unknown 01/17/2024 3:16 PM EDT 01/17/2024 3:40 PM EDT us Georgina Lincoln MD LAB BLOOD ORDERABLES Final Re sult [facility] [address] [place] [address], [place] from Last 3 Months or Most Recently Relevant to Health Maintenance Insurance [facility] Care Teams Battery Charger Relationship Specialty Start Date End Date Nicole Castrejon [address] [place] [address] PCP - General 01/03/23
--- OUTSIDE RECORDS SUMMARY | 2025-02-21 08:36 | XMS_ITS | Patient Health Record ---
Author Organization [facility] Address [address] [address] Care Team Providers Care Logistics Officer Name Role Phone Kasia Castellon Unavailable [phone] Reason For Referral No Information Plan Of Treatment No Information Insurance Providers Payer Name Payer Address Payer Phone Subscriber Number Group Number Insured Name Patient Relationship to Insured Coverage Start Date Coverage End Date CIGNA [address] [place], [place] [id number] CARLITOS OSULLIVAN Self - patient is the insured
== END 2025-02-21 08:51 | disposition home or self-care (01) ==
LOC: HO.RHES 08:10
PROVIDERS: PCP Internal Medicine; Visit Provider Internal Medicine Rheumatology
DX: R76.89 Other specified abnormal immunological findings in serum (principal); M65.4 Radial styloid tenosynovitis [de Quervain]; M18.0 Bilateral primary osteoarthritis of first carpometacarpal joints; G56.03 Carpal tunnel syndrome, bilateral upper limbs
CPT/HCPCS: 20600; 99213

== ENCOUNTER → 2025-02-21 08:10 | Outpatient (BNVA) | payer OTHER, SELFPAY | PROVIDERS: PCP Internal Medicine; Visit Provider Internal Medicine Rheumatology | DX: R76.81 Abnormal rheumatoid factor and anti-citrullinated protein antibody without rheumatoid arthritis (principal); M65.4 Radial styloid tenosynovitis [de Quervain]; M18.0 Bilateral primary osteoarthritis of first carpometacarpal joints; G56.03 Carpal tunnel syndrome, bilateral upper limbs | CPT/HCPCS: 20600; J2003; J3301 ==